=== PATIENT | female | born 1990 | race African-American/Black ===

== ENCOUNTER 2017-03-28 12:35 | Emergency (ER) | payer OTHER, SELFPAY ==
[2017-03-28 13:39] LABS: Hemoglobin 9.2 g/dL (12.0-16.0); Mean Corpuscular HGB CONC 35.5 g/dL (32.0-36.0); Mean Corpuscular Hemoglobin 33.5 pg (27.0-31.0); Mean Corpuscular Volume 94.3 fl (81.0-99.0); Mean Platelet Volume 9.8 fL (7.4-10.4); Platelet Count 331 thou/uL (130-400); RBC Distribution Width 16.1 % (11.5-14.5); Red Blood Cell (RBC) Count 2.73 mill/uL (4.20-5.40); White Blood Cell (WBC) Count 23.7 thou/uL (4.8-10.8)
[2017-03-28 13:46] LABS: Bilirubin Negative (Negative); Blood, Urine Moderate (Negative); Clarity CLOUDY (Clear); Glucose, Urine (Dipstick) Negative (Negative); Leukocyte Moderate (Negative); Nitrite Positive (Negative); Protein, Urine (Dipstick) Trace mg/dL (Neg-Trace); Specific Gravity, Urine 1.009 (1.002-1.036)
[2017-03-28 13:48] LABS: Reticulocyte Count 1.4 % (0.5-1.5)
[2017-03-28 13:49] LABS: Bacteria/HPF 4+ HPF (None Seen); Hyaline Casts/LPF 0-3 HYALINE CAST LPF (0-3 Hyaline); Squamous Epithelial 0-3 HPF (0-3); Yeast-AUWi Flag 169.3 (0-25.0)
[2017-03-28 14:01] LABS: ALT (SGPT) 30 U/L (8-55); AST (SGOT) 46 U/L (5-34); Albumin 4.8 g/dL (3.5-5.0); Alkaline Phosphatase 53 U/L (40-150); Anion Gap 16 mmol/L (10-20); BUN (Urea Nitrogen) 6 mg/dL (7.0-18.7); Bilirubin, Total 5.4 mg/dL (0.2-1.2); Calc. Creatinine Clearance 0 mL/min (70-130); Calcium 10.2 mg/dL (7.8-10.44); Carbon Dioxide 18 mmol/L (22-29); Chloride 107 mmol/L (98-107); Estimated GFR-MDRD Greater than 90; Globulin 3.3 g/dL (2.4-3.5); Glucose 83 mg/dL (70-105); Protein, Total 8.1 g/dL (6.0-8.3); Sodium 137 mmol/L (136-145)
[2017-03-28 14:04] LABS: RBC/HPF 0-3 HPF (0-3); Yeast-All Forms None Seen HPF (None Seen)
[2017-03-28 14:07] LABS: Anisocytosis SLIGHT = 6-15 cells (100X) (0-5/hpf); Band 1 % (5-11); Lymphocytes 9 % (21-51); MDiff Complete? YES; Monocytes 5 % (0-10); Neutrophil 85 % (42-75); PLT Morphology Comment Appears Adequate; Sickle Cells SLIGHT = 1-5 cells (100X) (None Seen)
[2017-03-28] MEDS ORDERED: Acetaminophen 325 MG TAB ONE ×2 (14:07→14:20)
[2017-03-28] MEDS ORDERED: cefTRIAXone\\ROCEPHIN 2 GM in Sodium Chloride 0.9% 100 ML IVPB SCH (14:45)
--- NOTE | 2017-03-28 14:47 | ULT ---
PELVIC ULTRASOUND: Date: 03/28/17 HISTORY: Fever, pain, vaginal bleeding. Patient states 5 week . History of sickle cell disease. FINDINGS: Multiple endovaginal sonographic images of the pelvis are obtained. The uterus demonstrates a normal sonographic appearance measuring 6.8 cm x 4.4 cm x 4.7 cm. Endometrial stripe measures 1.1 cm in thic kness, which is within normal limits for the patient's age. No fluid or fluid collection is seen in t he endometrial canal. The ovaries demonstrate a normal sonographic appearance bilaterally with the right ovary measuring 2. 8 cm x 2.0 cm x 2.0 cm and the left ovary measuring 4.2 cm x 2.4 cm x 2.0 cm. Doppler evaluation of each ovary with spectral analysis and color flow evaluation does demonstrate ar terial flow. The fallopian tubes are not visualized. A small amount of free fluid is seen in the pelvis. IMPRESSION: 1. No findings to suggest an intrauterine gestation based on this exam. Findings could be related to very early intrauterine gestation, but a double decidual sac sign is not definitely visualized to arita ggest the possibility of early intrauterine gestation. Correlation with quantitated beta HCG level is recommended for further evaluation. Ectopic cannot be excluded based on sonographic evalua tion. 2. Small amount of free fluid in the pelvis. 3. Normal appearing bilateral ovaries with arterial flow documented in each ovary. POS: [facility]
--- NOTE | 2017-03-28 15:35 | ULT ---
ABDOMINAL SONOGRAM 03/28/17 HISTORY: Abdominal pain. FINDINGS: Gallbladder is surgically absent. Common duct is 3 mm diameter. Liver is unremarkable without focal m ass or intrahepatic biliary dilatation. No free fluid is apparent. The right kidney is 10.8 cm and the left 12.8 cm. Each has a normal appearance. No hydronephrosis. Th e spleen and visualized portions of the abdominal aorta, IVC, and pancreas are unremarkable. IMPRESSION: 1. Status post cholecystectomy. No significant abnormalities are demonstrated. 2. No sonographic abnormalities are apparent to suggest renal inflammation. POS: [facility]
[2017-03-28] MEDS ORDERED: cefTRIAXone\\ROCEPHIN 2 GM VIAL IM SCH (17:45)
[2017-03-28] MEDS ORDERED: HYDROcodone/Acetaminophen 10/325 mg Tablet ONE (18:03)
== END 2017-03-28 19:19 | disposition home or self-care (01) ==
LOC: ERS 12:35
DX: O23.41 Unspecified infection of urinary tract in pregnancy, first trimester (principal); O99.011 Anemia complicating pregnancy, first trimester; Z3A.01 Less than 8 weeks gestation of pregnancy
CPT/HCPCS: 36415; 76700; 76856; 80053; 81003; 81015; 83605; 83690; 84702; 85025; 85046; 87040; 87077; 87086; 87149; 87186; 96372; J0696; J7050